=== PATIENT | female | born 1970 | race Two or more races ===

== ENCOUNTER 2018-07-19 21:15 | Emergency (ER) | payer MEDICAID ==
[~2018-07-19] VITALS: Ht 167.6 cm; Wt 88.9 kg
[2018-07-19 21:38] VITALS: Ht 167.6 cm; Wt 88.9 kg
[2018-07-20 00:04] VITALS: BP 123/66
== END 2018-07-20 00:04 | disposition home or self-care (01) ==
LOC: ED 21:15
DX: S39.012A Strain of muscle, fascia and tendon of lower back, initial encounter (principal); X58.XXXA Exposure to other specified factors, initial encounter; Y93.89 Activity, other specified; Y92.89 Other specified places as the place of occurrence of the external cause; Y99.8 Other external cause status
CPT/HCPCS: J1885

== ENCOUNTER 2019-10-09 04:50 | Inpatient (IN) | payer OTHER, MEDICAID ==
[~2019-10-09] VITALS: Ht 167.6 cm; Wt 88.0 kg
[2019-10-09 05:31] LABS: BASOPHIL % 0.7 % (0-2); PLATELET COUNT 312 x10^3mcL (130-400); RED CELL DISTRIBUTION WIDTH 13.5 % (11.5-14.5)
[2019-10-09 05:32] LABS: CALCIUM 8.2 mg/dL (8.5-10.1); CARBON DIOXIDE 29.1 mmol/L (21-32); CHLORIDE SERUM 105 mmol/L (98-107); CREATININE SERUM 0.8 mg/dL (0.6-1.0); GFR1 > 60 mL/min; GLUCOSE SERUM 132 mg/dL (74-106); POTASSIUM SERUM 3.7 mmol/L (3.5-5.1); SODIUM SERUM 142 mmol/L (136-145)
[2019-10-09 05:37] LABS: ALBUMIN 3.6 g/dL (3.4-5.0); ALKALINE PHOSPHATASE 111 U/L (46-116); ALT/SGPT 35 U/L (14-59); AST/SGOT 22 U/L (15-37); BILIRUBIN TOTAL 0.5 mg/dL (0.20-1.00); TOTAL PROTEIN, SERUM 7.8 g/dL (6.4-8.2)
[2019-10-09 07:34] LABS: CHOLESTEROL/HDL RATIO 3.7; MAGNESIUM 2.1 mg/dL (1.8-2.4)
[2019-10-09 07:43] LABS: T3 TOTAL 1.54 ng/mL
[2019-10-09 07:44] LABS: FREE T4 1.18 ng/dL (0.76-1.46)
[2019-10-09 08:00] VITALS: BP 97/38
[2019-10-09 08:26] VITALS: BP 90/43
[2019-10-09 08:53] VITALS: Ht 167.6 cm; Wt 88.0 kg
[2019-10-09 12:00] VITALS: BP 89/63
[2019-10-09 16:00] VITALS: BP 118/75
[2019-10-09 19:30] VITALS: BP 127/83
[2019-10-09 21:13] LABS: microscopic required? NO
[2019-10-09 21:27] LABS: UA SPECIFIC GRAVITY >=1.030 (1.005-1.035); urine erythrocyte NEGATIVE (NEGATIVE)
[2019-10-09 21:51] LABS: AMPHETAMINE QUAL UR POSITIVE (See below)
[2019-10-09 23:58] VITALS: BP 123/85
[2019-10-10 00:15] VITALS: BP 114/69
[2019-10-10 05:31] VITALS: BP 117/63
[2019-10-10 06:36] LABS: BASOPHIL % 0.2 % (0-2); PLATELET COUNT 245 x10^3mcL (130-400); RED CELL DISTRIBUTION WIDTH 13.3 % (11.5-14.5)
[2019-10-10 07:05] LABS: CALCIUM 7.7 mg/dL (8.5-10.1); CARBON DIOXIDE 24.4 mmol/L (21-32); CHLORIDE SERUM 105 mmol/L (98-107); CREATININE SERUM 0.6 mg/dL (0.6-1.0); GFR1 > 60 mL/min; GLUCOSE SERUM 129 mg/dL (74-106); MAGNESIUM 1.8 mg/dL (1.8-2.4); POTASSIUM SERUM 3.8 mmol/L (3.5-5.1); SODIUM SERUM 140 mmol/L (136-145)
[2019-10-10 07:13] VITALS: BP 103/61
[2019-10-10 09:07] VITALS: BP 120/87
[2019-10-10] MEDS ORDERED: CARDIZEM120 MG PO (09:58)
[2019-10-10] MEDS ORDERED: ELIQUIS5 MG PO (10:04)
[2019-10-10] MEDS ORDERED: LIPITOR20 MG PO (10:14)
== END 2019-10-10 11:06 | disposition home or self-care (01) | DRG 310 ==
LOC: ED 04:50 → IC 06:47 → DU 10-10 00:16
PROVIDERS: Emergency Medicine; ADMIT Family Medicine
DX: I48.0 Paroxysmal atrial fibrillation (principal); I47.1 Supraventricular tachycardia; F12.90 Cannabis use, unspecified, uncomplicated; E11.9 Type 2 diabetes mellitus without complications; E78.5 Hyperlipidemia, unspecified; E83.51 Hypocalcemia; Z60.2 Problems related to living alone; Z91.14 Patient's other noncompliance with medication regimen; Z90.49 Acquired absence of other specified parts of digestive tract; Z23 Encounter for immunization
CPT/HCPCS: 83880; 84439; 90658; 90732; G0378; J0153; J0282; J1644; J1650; J3490; J7030; J7042; Q0092